=== PATIENT | female | born 1970 | race Hispanic/Latino ===

== ENCOUNTER 2022-05-27 07:47 | Emergency (ER) | payer OTHER ==
[~2022-05-27] VITALS: Ht 149.9 cm; Wt 81.6 kg
[2022-05-27 08:20] LABS: BASOPHILS % (AUTO) 0.5 % (0.0-5.0); EOSINOPHILS % (AUTO) 1.2 % (0.0-8.0); HEMATOCRIT 43.7 % (36-48); LYMPHOCYTES % (AUTO) 19.6 % (21.0-51.0); MEAN CORPUSCULAR HEMOGLOBIN 30.9 pg (27.0-33.0); MEAN CORPUSCULAR HGB CONC 33.6 g/dL (32.0-36.0); MEAN CORPUSCULAR VOLUME 91.8 fL (79-99); MONOCYTES % (AUTO) 9.5 % (3.0-13.0); NEUTROPHILS % (AUTO) 68.7 % (40.0-77.0); PLATELET COUNT (AUTO) 232 K/uL (130-400); RED BLOOD CELL COUNT(AUTO) 4.76 MIL/uL (4.00-5.50); RED CELL DISTRIBUTION WIDTH 12.9 % (11.0-15.5); WHITE BLOOD COUNT (AUTO) 10.9 K/uL (4.8-10.8)
[2022-05-27 08:47] LABS: CREATININE 0.9 mg/dL (0.5-1.5); POTASSIUM 4.1 mmol/L (3.5-5.1); TOTAL PROTEIN, SERUM 7.4 g/dL (6.0-8.3)
[2022-05-27 09:08] LABS: APPEARANCE,URINE CLEAR (CLEAR); BILIRUBIN,URINE NEGATIVE (NEGATIVE); COLOR,URINE YELLOW (YELLOW); GLUCOSE, URINE (UA) 500 mg/dL (NEGATIVE); KETONES,URINE 5 mg/dL (NEGATIVE); LEUKOCYTE ESTERASE ,URINE NEGATIVE (NEGATIVE); NITRATE,URINE POSITIVE (NEGATIVE); OCCULT BLOOD,URINE NEGATIVE (NEGATIVE); PH,URINE 5.5 (5.0-8.0); PROTEIN,URINE NEGATIVE (NEGATIVE); UROBILINOGEN,URINE 0.2 mg/dL (0.2-1.0)
[2022-05-27 10:15] LABS: RBC,URINE 0-1 /HPF (0-1)
[2022-05-27 10:16] LABS: BACTERIA,URINE Moderate /HPF (None Seen); WBC,URINE 0-1 /HPF (0-1)
[2022-05-27] MEDS ORDERED: IOHEXOL 350 MG/ML 100ML INFUS..BTL IV ONE (11:41)
[2022-05-27] MEDS ORDERED: PANT40TA55 PO (12:47)
[2022-05-27] MEDS ORDERED: METR375C2 PO (12:47)
[2022-05-27] MEDS ORDERED: CIPR-278 PO (12:47)
[2022-05-27 13:04] VITALS: BP 105/59
== END 2022-05-27 13:03 | disposition home or self-care (01) ==
LOC: EDH 07:47
DX: K57.32 Diverticulitis of large intestine without perforation or abscess without bleeding (principal); E78.00 Pure hypercholesterolemia, unspecified; E11.9 Type 2 diabetes mellitus without complications
CPT/HCPCS: 99285; 74177; 80053; 83690; 85025; 87077; 87088; 87186; 81001; 36415; Q9967

== ENCOUNTER 2023-03-13 08:56 | Emergency (ER) | payer OTHER ==
[~2023-03-13] VITALS: Ht 149.9 cm; Wt 84.4 kg
[~2023-03-13 08:56] MED LIST: CIPR-278 PO; METR375C2 PO; PANT40TA55 PO
[2023-03-13] MEDS ORDERED: AMOX1TAB16 PO (09:59)
[2023-03-13] MEDS ORDERED: CLIN-141 PO (09:59)
[2023-03-13] MEDS ORDERED: CLINDAMYCIN 150 MG CAP PO ONE (10:00)
[2023-03-13] MEDS ORDERED: AMOX/CLAV 875/125MG TAB PO ONE (10:00)
[2023-03-13 10:34] VITALS: BP 105/60
== END 2023-03-13 10:35 | disposition home or self-care (01) ==
LOC: EDH 08:56
DX: H00.034 Abscess of left upper eyelid (principal); E11.9 Type 2 diabetes mellitus without complications; E78.00 Pure hypercholesterolemia, unspecified; Z79.899 Other long term (current) drug therapy; Z90.710 Acquired absence of both cervix and uterus

== ENCOUNTER 2024-05-20 19:19 | Emergency (ER) | payer BC, OTHER ==
[~2024-05-20] VITALS: Ht 152.4 cm; Wt 81.6 kg
[~2024-05-20 19:19] MED LIST changes: +AMOX1TAB16 PO; +CLIN-141 PO
[2024-05-20] MEDS: ACETAMINOPHEN 500 MG TABLET PO ONE (20:48)
[2024-05-20 21:12] LABS: RAPID GROUP A STREP negative (NEGATIVE)
[2024-05-20 21:22] LABS: INFLUENZA TYPE A Negative For Type A (NEGATIVE); INFLUENZA TYPE B Negative For Type B (NEGATIVE)
[2024-05-20 21:25] LABS: COVID19 (SARS ANTIGEN RAPID) POSITIVE FOR SARS AG (NEGATIVE)
[2024-05-20] MEDS ORDERED: ALBUHFA IH (21:53)
[2024-05-20] MEDS ORDERED: AZIT250T9 PO (21:53)
[2024-05-20] MEDS ORDERED: BENZ-39 PO (21:53)
[2024-05-20 22:24] VITALS: BP 132/76; PULSE 80; RESP 20; O2SAT 99
== END 2024-05-20 22:26 | disposition home or self-care (01) ==
LOC: EDH 19:19
DX: U07.1 COVID-19 (principal); E11.9 Type 2 diabetes mellitus without complications; E78.00 Pure hypercholesterolemia, unspecified; Z79.899 Other long term (current) drug therapy; Z90.710 Acquired absence of both cervix and uterus; Z98.890 Other specified postprocedural states
CPT/HCPCS: 87426; 87804; 87880